=== PATIENT | male | born 1975 | race Caucasian/White ===

== ENCOUNTER 2024-06-22 13:59 | Emergency (ER) | payer BC, SELFPAY ==
[2024-06-22 14:08] VITALS: BP 139/88; PULSE 104; TEMP 37.1; O2SAT 95; BMI 30.7
[2024-06-22 14:48] LABS: Influenza Virus A Antigen Negative; Influenza Virus B Antigen Negative; Internal Control Within Normal Limits
[2024-06-22 14:49] LABS: Internal Control Within Normal Limits; SARS-CoV-2 Ag NEGATIVE (NEGATIVE); Strep A Antigen Screen Negative
--- NOTE | 2024-06-22 15:08 | XR_ITS ---
The [address] [address] Patient Name: RODRIGO FLORES MRN: [id number] date: 1975 Sex: M Assigned Patient Location: ER Current Patient Location: ED.MAIN Accession/Order Number: [id number] Exam Date: 06/22/2024 15:35 Report Date: 06/22/2024 15:51 At the request of: PARTHA BERMAN Procedure: XR chest 2V EXAMINATION: XR chest 2V HISTORY: cough COMPARISON: 10/21/2011 TECHNIQUE: PA and lateral FINDINGS: LUNGS: No significant pulmonary parenchymal abnormalities. VASCULATURE: No increased pulmonary vasculature. PLEURA: No pneumothorax, effusion, or pleural thickening. CARDIAC: No cardiomegaly or cardiac silhouette abnormality. MEDIASTINUM: No visible mass or adenopathy. BONES: No fracture or visible bone lesion. OTHER: Negative. XR/XR chest 2V IMPRESSION: No acute cardiopulmonary process Electronically authenticated by: CHALO NOGUERA Date: 06/22/2024 15:51
[2024-06-22 15:09] LABS: BOX Test Reference Lab FIRELANDS
[2024-06-22 15:19] VITALS: PULSE 90; O2SAT 98
[2024-06-22] MEDS: IPRATROPIUM/ALBUTEROL SULFATE 3 ML AMPUL.NEB IH (15:19)
[2024-06-22] MEDS: DEXAMETHASONE SOD PHOS 10 MG/ML VIAL PO (15:26)
--- NOTE | 2024-06-22 15:51 | ED_ITS ---
Documented by User: Inez Pichardo 06/22/24 15:55 HPI HPI - General Adult General Chief complaint: Upper Respiratory Infection Stated complaint: SORE THROAT Time Seen by Provider: 06/22/24 14:15 Source: patient Mode of arrival: walk-in Limitations: no limitations History of Present Illness HPI narrative: 49-year-old male presents here with chief complaint of congestion shortness of breath for 1 week. Patient has dry nonproductive cough. Diminished breath sounds throughout. Denies a history of smoking he says he does vape. Related Data Previous Rx's ?Medication ?Instructions ?Recorded albuterol sulfate 90 mcg/actuation 2 inh inhalation Q6H PRN shortness 06/22/24 aerosol inhaler of breath or wheezing #8.5 grams azithromycin 250 mg tablet See Rx Instructions PO .COMPLEX #6 06/22/24 (Zithromax Z-Castillo) tabs prednisone 20 mg tablet 20 mg PO DAILY #7 tabs 06/22/24 Allergies Allergy/AdvReac Type Severity Reaction Status Date / Time No Known Drug Allergies Allergy Verified 06/22/24 14:14 Opioid HPI Opioid Management Most Recent Opioid Data: No Data to Display Review of Systems ROS Narrative All Systems are negative except as noted/marked.All systems reviewed and otherwise negative PFSH PFSH Social History Little interest or pleasure in doing things: not at all Feeling down, depressed, or hopeless: not at all Exam Narrative Exam Narrative: Nurses note and vital signs reviewed and patient is not hypoxic. General: The patient appears well and in no apparent distress. Patient is resting comfortably on cart. Skin: Warm, dry, no pallor noted. There is no rash noted. Head: Normocephalic, atraumatic Eye: Normal conjunctiva, no drainage, EOMI. PERRL Ears, Nose, Mouth, and Throat: oral mucosa is moist. Nares patent. Mouth without vesicles. Ear canals patent. Tm's without Erythema Cardiovascular: Regular Rate and Rhythm Respiratory: dry nonproductive cough Patient is in no distress, no accessory muscle use, lungs are clear to auscultation, no wheezing, rales or rhonchi Back: non-tender, no CVA tenderness bilaterally to percussion. Neurological: A&O x4, normal speech Psychiatric: Cooperative Constitutional Vital Signs, click to edit/add: Last Vital Signs Temp 98.8 F 06/22/24 14:08 Pulse 90 06/22/24 15:19 Resp 18 06/22/24 15:19 BP 139/88 06/22/24 14:08 Pulse Ox 99 06/22/24 15:59 O2 Del Method Room Air 06/22/24 15:59 Course Vital Signs Vital signs: Vital Signs Temperature 98.8 F 06/22/24 14:08 Pulse Rate 104 H 06/22/24 14:08 Respiratory Rate 18 06/22/24 14:08 Blood Pressure 139/88 06/22/24 14:08 Pulse Oximetry 95 06/22/24 14:08 Oxygen Delivery Method Room Air 06/22/24 14:08 Temperature 98.8 F 06/22/24 14:08 Pulse Rate 90 06/22/24 15:19 Respiratory Rate 18 06/22/24 15:19 Blood Pressure 139/88 06/22/24 14:08 Pulse Oximetry 99 06/22/24 15:59 Oxygen Delivery Method Room Air 06/22/24 15:59 Medical Decision Making [facility] Narrative Medical decision making narrative: Patient presented with 1 week history of cough and congestion. He states he vapes denies history of smoking. Rapid flu COVID and strep were all negative. Patient was medicated here with DuoNeb breathing treatments which did help to open him up. X-ray shows a questionable posterior lung infiltrate. Patient be treated with Z-Castillo and discharged home. Patient also be given a prescription for, albuterol inhaler and steroid. Patient is stable to discharge home agrees with plan of care Differential Diagnosis Differential Diagnosis: cough, congestion, influenza, covid Medical Records Medical records reviewed: Yes I reviewed the patient's medical records Medical records narrative: Patient presented with 1 week history of cough and congestion. He states he vapes denies history of smoking. Rapid flu COVID and strep were all negative. Patient was medicated here with DuoNeb breathing treatments which did help to open him up. X-ray shows a questionable posterior lung infiltrate. Patient be treated with Z-Castillo and discharged home. Patient also be given a prescription for, albuterol inhaler and steroid. Patient is stable to discharge home agrees with plan of care Lab Data Lab results reviewed: Yes I reviewed the patient's lab results Labs: Lab Results 06/22/24 Range/Units 14:15 Influenza Type A Ag Negative Influenza Type B Ag Negative SARS-CoV-2 Ag (CV2AG) Negative (NEGATIVE) Streptococcus Screen Negative Ref Lab Order Date 06/22/24 Ref Lab Test Name Strep a culture Ref Test Addition Info [facility] Imaging Data Chest x-ray: Radiologist's impression: ITS Impressions Chest X-Ray 06/22/24 15:08 IMPRESSION: No acute cardiopulmonary process Electronically authenticated by: CHALO NOGUERA Date: 06/22/2024 15:51 Discharge Plan Discharge Chief Complaint: Upper Respiratory Infection Clinical Impression: Upper respiratory infection Patient Disposition: Home, Self-Care Time of Disposition Decision: 15:48 Condition: Good Prescriptions / Home Meds: New azithromycin [Zithromax Z-Castillo] 250 mg tablet See Rx Instructions .ROUTE .COMPLEX Qty: 6 0RF Rx Instructions: For 250 mg dose pack: take 500 mg today (day 1), then 250 mg for 4 days (days 2-5) prednisone 20 mg tablet 20 mg PO DAILY Qty: 7 0RF albuterol sulfate 90 mcg/actuation HFA aerosol inhaler 2 inh inhalation Q6H PRN (Reason: shortness of breath or wheezing) Qty: 8.5 0RF Print Language: Yemeni Instructions: Upper Respiratory Infection (ED) Referrals: Physician,Non-Staff, [Primary Care Provider] - 1 week Discharge Date/Time: 06/22/24 16:01 Documented by User: Shreyas Ernst MD 06/22/24 19:59 HPI HPI - General Adult General Chief complaint: Upper Respiratory Infection Stated complaint: SORE THROAT Time Seen by Provider: 06/22/24 14:15 Related Data Previous Rx's ?Medication ?Instructions ?Recorded albuterol sulfate 90 mcg/actuation 2 inh inhalation Q6H PRN shortness 06/22/24 aerosol inhaler of breath or wheezing #8.5 grams azithromycin 250 mg tablet See Rx Instructions PO .COMPLEX #6 06/22/24 (Zithromax Z-Castillo) tabs prednisone 20 mg tablet 20 mg PO DAILY #7 tabs 06/22/24 Allergies Allergy/AdvReac Type Severity Reaction Status Date / Time No Known Drug Allergies Allergy Verified 06/22/24 14:14 Opioid HPI Opioid Management Most Recent Opioid Data: No Data to Display PFSH PFSH Social History Little interest or pleasure in doing things: not at all Feeling down, depressed, or hopeless: not at all Exam Constitutional Vital Signs, click to edit/add: Last Vital Signs Temp 98.8 F 06/22/24 14:08 Pulse 90 06/22/24 15:19 Resp 18 06/22/24 15:19 BP 139/88 06/22/24 14:08 Pulse Ox 99 06/22/24 15:59 O2 Del Method Room Air 06/22/24 15:59 Course Vital Signs Vital signs: Vital Signs Temperature 98.8 F 06/22/24 14:08 Pulse Rate 104 H 06/22/24 14:08 Respiratory Rate 18 06/22/24 14:08 Blood Pressure 139/88 06/22/24 14:08 Pulse Oximetry 95 06/22/24 14:08 Oxygen Delivery Method Room Air 06/22/24 14:08 Temperature 98.8 F 06/22/24 14:08 Pulse Rate 90 06/22/24 15:19 Respiratory Rate 18 06/22/24 15:19 Blood Pressure 139/88 06/22/24 14:08 Pulse Oximetry 99 06/22/24 15:59 Oxygen Delivery Method Room Air 06/22/24 15:59 Medical Decision Making [facility] Narrative Medical decision making narrative: Patient presented with 1 week history of cough and congestion. He states he vapes denies history of smoking. Rapid flu COVID and strep were all negative. Patient was medicated here with DuoNeb breathing treatments which did help to open him up. X-ray shows a questionable posterior lung infiltrate. Patient be treated with Z-Castillo and discharged home. Patient also be given a prescription for, albuterol inhaler and steroid. Patient is stable to discharge home agrees with plan of care I, Dr Ernst, have reviewed the above progress note and course of action in the ER; agree with the above. I have personally gone over history and physical, and discussed disposition and treatment plan with the patient. Lab Data Labs: Lab Results 06/22/24 Range/Units 14:15 Influenza Type A Ag Negative Influenza Type B Ag Negative SARS-CoV-2 Ag (CV2AG) Negative (NEGATIVE) Streptococcus Screen Negative Ref Lab Order Date 06/22/24 Ref Lab Test Name Strep a culture Ref Test Addition Info [facility] Imaging Data Chest x-ray: Radiologist's impression: ITS Impressions Chest X-Ray 06/22/24 15:08 IMPRESSION: No acute cardiopulmonary process Electronically authenticated by: CHALO NOGUERA Date: 06/22/2024 15:51 Discharge Plan Discharge Chief Complaint: Upper Respiratory Infection Clinical Impression: Upper respiratory infection Patient Disposition: Home, Self-Care Time of Disposition Decision: 15:48 Condition: Good Prescriptions / Home Meds: New azithromycin [Zithromax Z-Castillo] 250 mg tablet See Rx Instructions .ROUTE .COMPLEX Qty: 6 0RF Rx Instructions: For 250 mg dose pack: take 500 mg today (day 1), then 250 mg for 4 days (days 2-5) prednisone 20 mg tablet 20 mg PO DAILY Qty: 7 0RF albuterol sulfate 90 mcg/actuation HFA aerosol inhaler 2 inh inhalation Q6H PRN (Reason: shortness of breath or wheezing) Qty: 8.5 0RF Print Language: Yemeni Instructions: Upper Respiratory Infection (ED) Referrals: Physician,Non-Staff, MD [Primary Care Provider] - 1 week Discharge Date/Time: 06/22/24 16:01
[2024-06-22 15:59] VITALS: O2SAT 99
== END 2024-06-22 16:01 | disposition home or self-care (01) ==
PROVIDERS: Physician Assistant; Emergency Provider Emergency Medicine
DX: J06.9 Acute upper respiratory infection, unspecified (principal); F17.290 Nicotine dependence, other tobacco product, uncomplicated
CPT/HCPCS: 36415; 71046; 87070; 87081; 87804; 87811; 87880; 94640; 99285; J1100